=== PATIENT | female | born 1950 | race Caucasian/White ===

== ENCOUNTER → 2017-05-08 | Outpatient (CLI) | payer MEDICARE, BC ==
--- NOTE | 2017-05-08 16:34 | BD ---
EXAMINATION TYPE: MG DEXA axial skeleton. DATE OF EXAM: 05/08/2017 COMPARISON: NONE CLINICAL HISTORY: 66-year-old female postmenopausal screening Height: 5 FT 5 1/2 IN Weight: 110 FRAX RISK QUESTIONS: Alcohol (3 or more units per day): NO Family History (Parent hip fracture): NO Glucocorticoids (More than 3mos): NO (Ex: prednisone, prednisolone, methylprednisolone, dexamethasone, and hydrocortisone). History of Fracture in Adulthood: NO Secondary Osteoporosis: 1. Type 1 Diabetes: NO 2. HyperthyroidismNO: 3. Menopause before 45: NO 4. Malnutrition: NO 5. Chronic liver disease: NO Rheumatoid Arthritis: NO Current Tobacco Use: NO RISK FACTORS HISTORY OF: Active: YES Postmenopausal woman: AGE 48 MEDICATIONS: Additional Medications: NONE CALCIUM VIT D Additional History: EXAM MEASUREMENTS: Bone mineral densitometry was performed using the [employer] System. Bone mineral density as measured about the Lumbar spine is: ----- L1-L4(G/cm2): 1.113 T Score Values are as follows: ----- L2: -1.5 ----- L3: -0.4 ----- L4: 0.6 ----- L1-L4: -0.6 Bone mineral density has: Increased 1.4 % since study of: 2013 Bone mineral density about the R hip (g/cm2): 0.894 Bone mineral density about the L hip (g/cm2): 0.826 T Score values are as follows: -----R Neck: -1.0 -----L Neck: -1.5 -----R Total: -0.8 -----L Total: -0.7 Bone mineral density has: Increased 0.5% since study of: 2013 IMPRESSION: Osteopenia (T Score between -2.5 and -1 as noted by T score values in the lumbar spine and left hip). There is slightly increased risk of fracture and the patient may be considered for treatment. Re-Scre en 2-5 years. NOTE: T-SCORE=SD OF THE YOUNG ADULT MEAN.
--- NOTE | 2017-05-09 09:03 | MM ---
Reason for exam: screening (asymptomatic). Last mammogram was performed 1 year and 3 months ago. History: Patient is postmenopausal. Family history of breast cancer in maternal aunt at age 50. Took estrogen for 10 years beginning at age 44. Physical Findings: A clinical breast exam by your physician is recommended on an annual basis and results should be correlated with mammographic findings. MG 3D Screening Mammo W/Cad Bilateral CC and MLO view(s) were taken. Prior study comparison: January 27, 2016, bilateral MG 3d screening mammo w/cad. December 13, 2014, bilateral MG screening mammo w CAD. The breast tissue is extremely dense which could obscure a lesion on mammography. Stable benign calcifications. There is chronic nodularity bilaterally. There is no dominant lesion. No significant changes when compared with prior studies. ASSESSMENT: Benign, BI-RAD 2 RECOMMENDATION: Routine screening mammogram of both breasts in 1 year.
== END ==
LOC: RADMAMWWP 12:33
PROVIDERS: ATTEND Internal Medicine
DX: Z12.31 Encounter for screening mammogram for malignant neoplasm of breast (principal); Z80.3 Family history of malignant neoplasm of breast; M85.851 Other specified disorders of bone density and structure, right thigh; M85.852 Other specified disorders of bone density and structure, left thigh; M85.88 Other specified disorders of bone density and structure, other site
CPT/HCPCS: 77080; 77063; G0202

== ENCOUNTER → 2017-10-23 | Outpatient (CLI) | payer MEDICARE, BC ==
--- NOTE | 2017-10-23 18:30 | US ---
EXAMINATION TYPE: US venous doppler duplex LE RT DATE OF EXAM: 10/23/2017 5:49 PM COMPARISON: NONE CLINICAL HISTORY: R22.41 swelling right leg, M79.661 pain right leg. Right calf vein SIDE PERFORMED: Right TECHNIQUE: The lower extremity deep venous system is examined utilizing real time linear array sonog marcella with graded compression, doppler sonography and color-flow sonography. VESSELS IMAGED: External Iliac Vein (EIV) Common Femoral Vein Deep Femoral Vein Greater Saphenous Vein * Femoral Vein Popliteal Vein Small Saphenous Vein * Proximal Calf Veins (* superficial vessels) Right Leg: Appears negative for DVT IMPRESSION: Normal exam. No evidence of deep venous thrombosis in the right leg.
== END | disposition home or self-care (01) ==
LOC: RADUSMAIN 17:00
PROVIDERS: ATTEND Internal Medicine
DX: R22.41 Localized swelling, mass and lump, right lower limb (principal); M79.661 Pain in right lower leg

== ENCOUNTER → 2018-07-11 | Outpatient (CLI) | payer MEDICARE, BC ==
--- NOTE | 2018-07-11 12:47 | XR ---
EXAMINATION TYPE: XR chest 2V DATE OF EXAM: 07/11/2018 COMPARISON: None INDICATION: Cough, fever TECHNIQUE: Frontal and lateral views of the chest are obtained. FINDINGS: The heart size is normal. The pulmonary vasculature is normal. The lungs are clear. IMPRESSION: 1. No acute pulmonary process.
== END | disposition home or self-care (01) ==
LOC: RADXRMAIN 12:17
PROVIDERS: ATTEND Internal Medicine
DX: R05 Cough (principal); R50.9 Fever, unspecified
CPT/HCPCS: 71046

== ENCOUNTER → 2018-08-27 | Outpatient (CLI) | payer MEDICARE, BC ==
--- NOTE | 2018-08-29 09:02 | MM ---
Reason for exam: screening (asymptomatic). Last mammogram was performed 1 year and 4 months ago. History: Patient is postmenopausal. Family history of breast cancer in maternal aunt at age 50. Took estrogen for 10 years beginning at age 44. Physical Findings: A clinical breast exam by your physician is recommended on an annual basis and results should be correlated with mammographic findings. MG 3D Screening Mammo W/Cad Bilateral CC and MLO view(s) were taken. Prior study comparison: May 08, 2017, bilateral MG 3d screening mammo w/cad. January 27, 2016, bilateral MG 3d screening mammo w/cad. The breast tissue is extremely dense which could obscure a lesion on mammography. No significant changes when compared with prior studies. ASSESSMENT: Benign, BI-RAD 2 RECOMMENDATION: Routine screening mammogram of both breasts in 1 year.
== END | disposition home or self-care (01) ==
LOC: RADMAMWWP 13:14
PROVIDERS: ATTEND Internal Medicine
DX: Z12.31 Encounter for screening mammogram for malignant neoplasm of breast (principal)
CPT/HCPCS: 77063; 77067

== ENCOUNTER → 2019-05-11 | Outpatient (CLI) | payer MEDICARE, BC ==
--- NOTE | 2019-05-11 13:21 | BD ---
EXAMINATION TYPE: Axial Bone Density DATE OF EXAM: 05/11/2019 COMPARISON: 05/08/2017 CLINICAL HISTORY: osteoporosis Height: 5'5 Weight: 109 FRAX RISK QUESTIONS: Secondary Osteoporosis: 3. Menopause before 45: ? RISK FACTORS HISTORY OF: Postmenopausal woman: y MEDICATIONS: Additional Medications: Additional History: EXAM MEASUREMENTS: Bone mineral densitometry was performed using the [employer] System. Bone mineral density as measured about the Lumbar spine is: ----- L1-L4(G/cm2): 1.114 T Score Values are as follows: ----- L2: -1.5 ----- L3: 0.3 ----- L4: 0.4 ----- L1-L4: -0.6 Bone mineral density has: Increased 0.7%since study of: 05/08/2017 Bone mineral density about the R hip (g/cm2): 0.870 Bone mineral density about the L hip (g/cm2): 0.811 T Score values are as follows: -----R Neck: -1.2 -----L Neck: -1.6 -----R Total: -0.9 -----L Total: -0.8 Bone mineral density has: Decreased -2.2 %since dy of: 05/08/2017 IMPRESSION: Osteopenia (T Score between -2.5 and -1). There is slightly increased risk of fracture and the patient may be considered for treatment. Re-Screen 2-5 years. NOTE: T-SCORE=SD OF THE YOUNG ADULT MEAN.
== END | disposition home or self-care (01) ==
LOC: RADBDWWP 10:37
PROVIDERS: ATTEND Internal Medicine
DX: M85.89 Other specified disorders of bone density and structure, multiple sites (principal)
CPT/HCPCS: 77080

== ENCOUNTER → 2019-08-28 | Outpatient (CLI) | payer BC, MEDICARE ==
--- NOTE | 2019-08-31 10:02 | MM ---
Reason for exam: screening (asymptomatic). Last mammogram was performed 1 year ago. History: Patient is postmenopausal. Family history of breast cancer in maternal aunt at age 50. Took estrogen for 10 years beginning at age 44. Physical Findings: A clinical breast exam by your physician is recommended on an annual basis and results should be correlated with mammographic findings. MG 3D Screening Mammo W/Cad Bilateral CC and MLO view(s) were taken. Prior study comparison: August 27, 2018, bilateral MG 3d screening mammo w/cad. May 08, 2017, bilateral MG 3d screening mammo w/cad. The breast tissue is extremely dense which could obscure a lesion on mammography. There are similar appearing bilateral calcifications. No suspicious abnormality. No significant changes when compared with prior studies. ASSESSMENT: Benign, BI-RAD 2 RECOMMENDATION: Routine screening mammogram of both breasts in 1 year.
== END | disposition home or self-care (01) ==
LOC: RADMAMWWP 10:56
PROVIDERS: ATTEND Internal Medicine
DX: Z12.31 Encounter for screening mammogram for malignant neoplasm of breast (principal)
CPT/HCPCS: 77063; 77067

== ENCOUNTER → 2020-08-30 | Outpatient (CLI) | payer MEDICARE ==
--- NOTE | 2020-08-31 11:53 | MM ---
Reason for exam: screening (asymptomatic). Last mammogram was performed 1 year ago. History: Patient is postmenopausal. Family history of breast cancer in maternal aunt at age 50. Took estrogen for 10 years beginning at age 44. Physical Findings: A clinical breast exam by your physician is recommended on an annual basis and results should be correlated with mammographic findings. MG 3D Screening Mammo W/Cad Bilateral CC and MLO view(s) were taken. Prior study comparison: August 28, 2019, bilateral MG 3d screening mammo w/cad. August 27, 2018, bilateral MG 3d screening mammo w/cad. The breast tissue is extremely dense which could obscure a lesion on mammography. Stable benign calcifications. There is no discrete abnormality. No significant changes when compared with prior studies. ASSESSMENT: Benign, BI-RAD 2 RECOMMENDATION: Routine screening mammogram of both breasts in 1 year.
== END | disposition home or self-care (01) ==
LOC: RADMAMWWP 11:58
PROVIDERS: ATTEND Internal Medicine
DX: Z12.31 Encounter for screening mammogram for malignant neoplasm of breast (principal)
CPT/HCPCS: 77063; 77067

== ENCOUNTER → 2021-02-03 | Outpatient (CLI) | payer MEDICARE ==
[2021-02-04 04:09] LABS: Protein, Total 6.7 g/dL (6.2-8.2)
[2021-02-04 05:58] LABS: Hemoglobin A1C 5.1 % (4.0-6.0)
== END | disposition home or self-care (01) ==
LOC: LABWHC1 10:53
PROVIDERS: ATTEND Psychiatry & Neurology Neurology
DX: E78.5 Hyperlipidemia, unspecified (principal); G62.9 Polyneuropathy, unspecified
CPT/HCPCS: 36415; 82607; 82747; 83036; 84165; 85652; 86038; 86618

== ENCOUNTER → 2021-09-01 | Outpatient (CLI) | payer MEDICARE ==
--- NOTE | 2021-09-05 08:56 | MM ---
Reason for exam: screening (asymptomatic). Last mammogram was performed 1 year ago. History: Patient is postmenopausal. Family history of breast cancer in maternal aunt at age 50. Took estrogen for 10 years beginning at age 44. Physical Findings: A clinical breast exam by your physician is recommended on an annual basis and results should be correlated with mammographic findings. MG 3D Screening Mammo W/Cad Bilateral CC and MLO view(s) were taken. Prior study comparison: August 30, 2020, bilateral MG 3d screening mammo w/cad. August 28, 2019, bilateral MG 3d screening mammo w/cad. The breast tissue is extremely dense which could obscure a lesion on mammography. Bilateral global asymmetries. 6mm nodular asymmetry central right beast just lateral to the retroareolar plane is new or more defined. ASSESSMENT: Incomplete: need additional imaging evaluation, BI-RAD 0 RECOMMENDATION: Special view mammogram of the right breast. (3D) If lesion persists on supplemental views, image directed ultrasound is recommended. [facility] will attempt to contact patient to return for supplemental views and ultrasound if indicated.
== END | disposition home or self-care (01) ==
LOC: RADMAMWWP 09:41
PROVIDERS: ATTEND Internal Medicine
DX: Z12.31 Encounter for screening mammogram for malignant neoplasm of breast (principal); Z78.0 Asymptomatic menopausal state; Z80.3 Family history of malignant neoplasm of breast
CPT/HCPCS: 77063; 77067

== ENCOUNTER → 2021-09-06 | Outpatient (CLI) | payer MEDICARE ==
--- NOTE | 2021-09-06 10:41 | MM ---
Reason for exam: additional evaluation requested from abnormal screening. Last mammogram was performed less than 1 month ago. History: Patient is postmenopausal. Family history of breast cancer in maternal aunt at age 50. Took estrogen for 10 years beginning at age 44. Physical Findings: Nurse did not find any significant physical abnormalities on exam. MG 3D Work Up W/Cad RT Spot compression CC, LM, and CCRL view(s) were taken of the right breast. Prior study comparison: September 01, 2021, bilateral MG 3d screening mammo w/cad. August 30, 2020, bilateral MG 3d screening mammo w/cad. Nodularity upper half right breast 6cm from nipple. These results were verbally communicated with the patient and result sheet given to the patient on 09/06/21. ASSESSMENT: Incomplete: need additional imaging evaluation, BI-RAD 0 RECOMMENDATION: Ultrasound of the right breast.
--- NOTE | 2021-09-06 10:42 | USB ---
Reason for exam: additional evaluation requested from abnormal screening. History: Patient is postmenopausal. Family history of breast cancer in maternal aunt at age 50. Took estrogen for 10 years beginning at age 44. US Breast Workup Limited RT Right limited breast ultrasound including focal area of concern, retroareolar and axilla demonstrates no cystic or solid lesion seen. These results were verbally communicated with the patient and result sheet given to the patient on 09/06/21. ASSESSMENT: Negative, BI-RAD 1 RECOMMENDATION: Return to routine screening mammogram schedule for both breasts.
== END | disposition home or self-care (01) ==
LOC: RADMAMWWP 08:55
PROVIDERS: ATTEND Internal Medicine
DX: R92.8 Other abnormal and inconclusive findings on diagnostic imaging of breast (principal); Z78.0 Asymptomatic menopausal state; Z80.3 Family history of malignant neoplasm of breast
CPT/HCPCS: 77065; 76642; G0279; 77061

== ENCOUNTER → 2022-08-01 | Outpatient (CLI) | payer MEDICARE ==
--- NOTE | 2022-08-01 16:56 | BD ---
EXAMINATION TYPE: Axial Bone Density DATE OF EXAM: 08/01/2022 COMPARISON: 05-11-2019 CLINICAL HISTORY: 71 years year old Female. ICD-10 CODE: N95.1 MENOPAUSAL AND FEMALE CLIMACTERIC STA WILMA Height: 65IN Weight: 109LB FRAX RISK QUESTIONS: Secondary Osteoporosis: RISK FACTORS HISTORY OF: Active: YES Postmenopausal woman: YES Take estrogen and/or progesterone medications: YES, NONE CURRENT How long: ABOUT 1 YEAR MEDICATIONS: Osteoporosis Medications: Which medication: UNSURE How Long: SHORT PERIOD Additional Medications: CALCIUM AND SUPPLEMENTS Additional History: EXAM MEASUREMENTS: Bone mineral densitometry was performed using the [employer] System. Bone mineral density as measured about the Lumbar spine is: ----- L1-L4(G/cm2): 1.143 T Score Values are as follows: ----- L1: -2.0 ----- L2: -1.5 ----- L3: 0.6 ----- L4: 0.8 ----- L1-L4: -0.3 Bone mineral density has: Increased 3.2% since study of: 05-11-19 Bone mineral density about the R hip (g/cm2): 0.828 Bone mineral density about the L hip (g/cm2): 0.858 T Score values are as follows: -----R Neck: -1.2 -----L Neck: -1.7 -----R Total: -1.4 -----L Total: -1.2 Bone mineral density has: Decreased -5.8% since study of: 05-11-19 FRAX%s: The graph provided illustrates a 9.3% chance for a major osteoporotic fx and a 2.1% chance fo r the hips probability for fx in 10 years time. IMPRESSION: Osteopenia (T Score between -2.5 and -1). There is slightly increased risk of fracture and the patient may be considered for treatment. Re-Screen 2-5 years. NOTE: T-SCORE=SD OF THE YOUNG ADULT MEAN.
== END | disposition home or self-care (01) ==
LOC: RADBDWWP 12:14
PROVIDERS: ATTEND Internal Medicine
DX: M85.89 Other specified disorders of bone density and structure, multiple sites (principal); Z78.0 Asymptomatic menopausal state
CPT/HCPCS: 77080

== ENCOUNTER → 2023-07-08 | Outpatient (CLI) | payer MEDICARE ==
--- NOTE | 2023-07-08 17:22 | MR ---
EXAMINATION TYPE: MR tspine/lspine wo con DATE OF EXAM: 07/08/2023 COMPARISON: None HISTORY: Mid and lower back pain, radiates down back of thighs. CONTRAST: Performed utilizing 0 mL intravenous Gadavist gadolinium contrast. TECHNIQUE: Multiplanar, multiecho imaging on a 3.0 Rita magnet is performed through the thoracic spi ne. Spinal cord maintains normal signal through its visualized course. There is exaggeration of the thoracic kyphosis. Vertebral body heights are preserved. Disc heights are preserved. There is diffuse disc desiccation throughout the thoracic spine. C5-6 has some posterior endplate spurring with anterior thecal sac impression. This has cord contact. AP spinal canal stenosis is present. Evaluation of the cervical spine is recommended for additional workup. T3-4: There is a small right paracentral disc bulge with anterior thecal sac compression. No cord con tact is evident. No spinal canal stenosis is present. Neural foramen are patent. T7-8: There is a large left paracentral endplate change and disc herniation this has significant ante rior thecal sac compression. Cord contact and cord deformity is present. AP spinal canal stenosis is not present. T8-9: There is a large right paracentral disc herniation. This has cord contact and cord deformity. A P spinal canal stenosis is present. There is some mild shift of the spinal cord towards the left. Sig nal within the spinal cord is preserved. T9-T10: There is a small central protrusion with anterior thecal sac compression. No cord contact 7. No spinal canal stenosis or neural foraminal stenosis is present. T10-11: There is a large right paracentral disc herniation with moderate anterior thecal sac compress ion. Cord contact is not identified although some cord deformity appears to be present. No AP spinal canal stenosis is present. Neural foramen appear patent. IMPRESSION: 1. Partially visualized C5-6 right paracentral disc herniation with spinal canal stenosis and cord de formity. Additional workup with complete MRI cervical spine recommended. 2. Large left T7-8 disc herniation with endplate spurring with significant anterior thecal sac compre ssion and cord deformity. 3. Large right paracentral disc herniation T8-9 which has cord deformity. 4. T10-11: Large right paracentral disc herniation without cord contact although some cord deformity may be present. EXAMINATION TYPE: MR tspine/lspine wo con DATE OF EXAM: 07/08/2023 COMPARISON: HISTORY: Mid and lower back pain, radiates down back of thighs. CONTRAST: 0 mL intravenous Gadavist. TECHNIQUE: Multiplanar, multisequence images of the lumbar spine were acquired. FINDINGS: Cord terminates at the L1-L2 level. L5-S1: No significant disc bulge or disc herniation. Small central disc protrusion may be present wit hout thecal sac compression. No spinal canal stenosis. No foraminal stenosis. L4-L5: Mild disc bulge residual is present with mild anterior thecal sac contact. No spinal canal angel nosis is present. There is loss of disc height is level. Endplate changes are present. Severe bilater al foraminal stenosis is present L3-L4: Broad-based disc bulge with moderate anterior thecal sac flattening. Facet hypertrophy greater on the left as posterior lateral thecal sac compression. Severe foraminal stenosis is present L2-L3: Broad-based disc bulge has mild anterior thecal sac compression. Facet hypertrophy and ligamen ashok flavum laxity is present. No spinal canal stenosis is present. Moderate foraminal narrowing is pr esent greater on the right. L1-L2: No significant disc bulge or disc herniation. No spinal canal stenosis. No foraminal stenosi s. T12-L1: No significant disc bulge or disc herniation. No spinal canal stenosis. No foraminal stenos is. IMPRESSION: 1. Disc bulging with mild to moderate anterior thecal sac compression L2-3 through L4-5. No spinal ca nal stenosis. 2. Multilevel severe foraminal stenosis within the mid to lower lumbar spine.
== END | disposition home or self-care (01) ==
LOC: RADMRIMAIN 13:29
PROVIDERS: ATTEND Internal Medicine
DX: M51.26 Other intervertebral disc displacement, lumbar region (principal); M99.73 Connective tissue and disc stenosis of intervertebral foramina of lumbar region; M51.24 Other intervertebral disc displacement, thoracic region; M48.02 Spinal stenosis, cervical region
CPT/HCPCS: 72146; 72148

== ENCOUNTER → 2025-02-02 | Outpatient (CLI) | payer MEDICARE ==
--- NOTE | 2025-02-02 14:31 | MM ---
Reason for Exam: Screening (asymptomatic). Last mammogram was performed 2 year(s) and 4 month(s) ago. Patient History: Menarche at age 11. First Full-Term at age 20. Postmenopausal. Patient has history of breast feeding. Estrogen for 10 years from age 44 until age 54. Maternal aunt had breast cancer, age 50. Risk Values: June 5 year model risk: 1.6%. NCI Lifetime model risk: 3.2%. Prior Study Comparison: 09/01/2021 Bilateral Screening Mammogram, [facility]. 09/06/2021 Right Diagnostic Mammogram, [facility]. 09/26/2022 Bilateral MG 3D screening mammo w/cad, [facility]. Tissue Density: The breasts are heterogeneously dense, which may obscure small masses. Findings: Analyzed By CAD. There are benign-appearing dystrophic calcifications in the right breast now seen. There is no suspicious new group of microcalcifications or new suspicious mass in either breast. Overall Assessment: Benign, BI-RAD 2 Management: Screening Mammogram of both breasts in 1 year. Some Advise annual bilateral breast ultrasound surveillance in patient with background dense tissue. Patient should continue monthly self-breast exams. A clinical breast exam by your physician is recommended on an annual basis. This exam should not preclude additional follow-up of suspicious palpable abnormalities. Note on June scores and lifetime risk: 1. A June score greater than 3% is considered moderate risk. If this is the case, consider specialist referral to assess eligibility for a risk reducing agent. 2. If overall lifetime risk for the development of breast cancer is 20% or higher, the patient may qualify for future screening with alternating mammogram and breast MRI. [facility], , 02/02/2025 2:28 PM. Electronically signed and approved by: Rusty Munoz M.D.
== END | disposition home or self-care (01) ==
LOC: RADMAMWWP 13:18
PROVIDERS: ATTEND Internal Medicine
DX: Z12.31 Encounter for screening mammogram for malignant neoplasm of breast (principal); R92.1 Mammographic calcification found on diagnostic imaging of breast; R92.333 Mammographic heterogeneous density, bilateral breasts; Z78.0 Asymptomatic menopausal state; Z80.3 Family history of malignant neoplasm of breast
CPT/HCPCS: 77063; 77067